=== PATIENT | female | born 1945 | race Asian ===

== ENCOUNTER → 2020-04-04 | Outpatient (CLI) | payer MEDICARE | END | disposition home or self-care (01) | LOC: SRCNTR 16:57 | PROVIDERS: ATTEND Internal Medicine Critical Care Medicine | DX: E03.9 Hypothyroidism, unspecified (principal); R91.8 Other nonspecific abnormal finding of lung field; J47.9 Bronchiectasis, uncomplicated | CPT/HCPCS: Q3014 ==